=== PATIENT | female | born 1985 | race Caucasian/White ===

== ENCOUNTER 2017-01-23 12:20 | Emergency (ER) | payer OTHER ==
--- NOTE | ~2017-01-23 | MR31 ---
[facility] A Service of [facility] & [facility] RADIOLOGY TEXT RESULTS PATIENT: SAULO MOCK LOCATION: [place] : 87 UNIT #: [id number] AGE: [address]: ETHEL ROSAS SEX: F ORDER DR: [id number] [facility] [address] [place], [place] [address] [id number] E MR#: [id number] Acc #: [id number] NAME: SAULO MOCK : 1985 SEX: F STUDY DATE/TIME: 01/23/2017 14:13 UNIT: [facility] ROOM: STUDY DESCRIPTION: MR Cervical WWo Contrast Attending Physician: Ethel Rosas A.P.R.N. Ordering Physician: Ethel Rosas A.P.R.N. Primary Care Physician: [facility], [facility]. MRI CENTER REPORT This report is preliminary unless electronic signature is present. EXAM MR cervical spine HISTORY Bilateral hand tingling and numbness for four days. IV drug abuse. Last used yesterday. Concern for epidural abscess. History of MRSA. COMMENT MRI of the cervical spine performed prior to and following intravenous administration of 11 mL of MultiHance. There are some plain films for comparison from 2005. Sagittal alignment is normal. Bone marrow signal intensity is normal. Subtle intervertebral disc desiccation 2-3 through 5-6 levels. There is no Chiari-I malformation. The cervical cord is normal in size and signal intensity. Following contrast administration, there is no pathologic intracanalicular enhancement. There is no evidence for diskitis, osteomyelitis, or epidural abscess formation. The study is motion limited despite use of motion limiting sequences and repeating sequences. Evaluation of degenerative disease: No significant abnormality. C3-4, left sided facet degenerative change mild with mild left foraminal narrowing. No canal stenosis. Minor concentric disc bulge. At C4-5, mild facet degenerative change on the left. Minor concentric disc bulge with uncovertebral osteophyte formation right greater than left. Mild effacement of the right greater than left cord anteriorly. Very mild canal stenosis and bilateral foraminal narrowing probably moderate to severe on the right mild to moderate on the left. Probably a small more focal right paramedian to posterolateral component of protrusion at the C4-5 level. [facility] A Service of [facility] & [facility] RADIOLOGY TEXT RESULTS PATIENT: SAULO MOCK LOCATION: [place] : 87 UNIT #: [id number] AGE: [address]: ETHEL ROSAS SEX: F ORDER DR: At C5-6, minor concentric disc bulge, mild effacement of the anterior cord and thecal sac. Very mild canal stenosis. Mild foraminal narrowing bilaterally. C6-7, no significant abnormality. C7-T1, no significant abnormality. IMPRESSION 1. Nothing to suggest diskitis osteomyelitis or epidural abscess. 2. There are some cervical degenerative changes most significant appearing radiographically at the C4-5 level where there is mild canal stenosis and asymmetric right sided foraminal impingement. There is concern for a small rightward more focal protrusion impinging upon the entry zone of the right 4-5 foramen and foramen itself. See above. Dictated by... Jillian Red M.D. THIS IS AN ELECTRONICALLY VERIFIED REPORT Jillian Red M.D. at 01/24/2017 1:43 PM ESAU/vince TD: 01/24/2017 04:24 JOB #: [id number] MRI CENTER REPORT Page 1 of 1 COPY
[~2017-01-23 12:20] MED LIST: BACTRIM DS TABL1 TA1 PO; BENADRYL25 MG PO; BIRTH CONTROL PILL; DERMACORT1 GM EXT; E-MYCIN250 MG PO; FLEXERIL10 MG PO; HYDROCODON-ACE1 EACH PO; IBUPROFEN800 MG PO; KEFLEX500 MG PO; MOBIC15 MG PO; ORUDIS75 M1 PO; PHENERGAN25 MG PO; ULTRAM PO
[2017-01-23 14:06] LABS: BASOPHIL# 0.1 X10e3 (0-0.3); BASOPHIL% 0.9 % (0-2.5); EOSINOPHIL# 0.2 X10e3 (0-0.7); EOSINOPHIL% 3.1 % (0.0-7.0); HEMATOCRIT 40.6 % (35.0-45.0); HEMOGLOBIN 13.1 gm/dL (12.0-16.0); LYMPHOCYTE# 1.7 X10e3 (1.0-3.5); MEAN CELL VOLUME 86.6 FL (83-96); MEAN CORPUSCULAR HEMOGLOBIN 27.9 PG (28-34); MEAN CORPUSCULAR HGB CONC 32.3 g/dL (30-36); MEAN PLATELET VOLUME 8.1 FL (6.5-11.5); MONOCYTE# 0.8 X10e3 (0-1.0); NEUTROPHIL# 3.1 X10e3 (1.5-7.1); PLATELET COUNT 374 X10e3 (140-420); RED BLOOD COUNT 4.69 X10e (3.90-5.30); RED CELL DISTRIBUTION WIDTH 14.7 % (11.0-15.5); WHITE BLOOD COUNT 5.8 X10e3 (4.0-10.5)
[2017-01-23 14:09] LABS: DIFF IND NO
[2017-01-23 14:27] LABS: BUN/CREATININE RATIO 16.66; CALCIUM SERUM 8.8 mg/dL (8.4-10.2); CREATININE SERUM 0.6 mg/dL (0.6-1.4); GLOM FILT RATE Estimated 122.3 mL/min (>60); POTASSIUM 3.6 mmol/L (3.5-5.1)
== END 2017-01-23 17:48 | disposition home or self-care (01) ==
LOC: CED 12:20 → CFTX 12:20
PROVIDERS: Nurse Practitioner
DX: G56.03 Carpal tunnel syndrome, bilateral upper limbs (principal); M50.321 Other cervical disc degeneration at C4-C5 level; F17.210 Nicotine dependence, cigarettes, uncomplicated; Z98.51 Tubal ligation status; Z79.899 Other long term (current) drug therapy; Z88.1 Allergy status to other antibiotic agents
CPT/HCPCS: 29125; 72156; 80048; 85025; 96361; 96374; 99284; A9577; J1885

== ENCOUNTER 2017-04-30 04:36 | Emergency (ER) | payer OTHER ==
[~2017-04-30] VITALS: Ht 154.9 cm; Wt 63.5 kg
[2017-04-30 06:58] LABS: BASOPHIL# 0.1 X10e3 (0-0.3); BASOPHIL% 0.9 % (0-2.5); DIFF IND NO; EOSINOPHIL# 0.2 X10e3 (0-0.7); EOSINOPHIL% 1.8 % (0.0-7.0); HEMOGLOBIN 13.8 gm/dL (12.0-16.0); LYMPHOCYTE% 38.2 % (17.0-45.0); MEAN CELL VOLUME 87.5 FL (83-96); MEAN CORPUSCULAR HEMOGLOBIN 30.3 PG (28-34); MEAN CORPUSCULAR HGB CONC 34.6 g/dL (30-36); MEAN PLATELET VOLUME 7.3 FL (6.5-11.5); MONOCYTE# 1.3 X10e3 (0-1.0); MONOCYTE% 12.2 % (3.0-12.0); NEUTROPHIL# 4.9 X10e3 (1.5-7.1); NEUTROPHIL% 46.9 % (40-75); PLATELET COUNT 469 X10e3 (140-420); RED BLOOD COUNT 4.57 X10e (3.90-5.30); RED CELL DISTRIBUTION WIDTH 13.4 % (11.0-15.5); WHITE BLOOD COUNT 10.3 X10e3 (4.0-10.5)
[2017-04-30 07:37] LABS: ALBUMIN SERUM 4.4 g/dL (3.5-5.0); ALCOHOL BLOOD <5 mg/dL (0); ALKALINE PHOSPHATASE 78 U/L (32-92); ALT (SGPT) 154 U/L (10-40); AST (SGOT) 103 U/L (10-42); BILIRUBIN, DIRECT 0.2 mg/dL (0.0-0.2); BILIRUBIN,INDIRECT 0.7 mg/dL (0.0-0.9); BILIRUBIN,TOTAL 0.9 mg/dL (0.2-2.0); BLOOD UREA NITROGEN 19 mg/dL (9-23); BUN/CREATININE RATIO 14.61; CARBON DIOXIDE 27 mmol/L (22-31); CHLORIDE 99 mmol/L (100-111); CREATININE SERUM 1.3 mg/dL (0.6-1.4); GLUCOSE FASTING 109 mg/dL (70-110); POTASSIUM 3.2 mmol/L (3.5-5.1); PROTEIN TOTAL SERUM 8.5 g/dL (6.0-8.3); SODIUM 136 mmol/L (135-145)
== END 2017-04-30 10:02 | disposition home or self-care (01) ==
LOC: CED 04:36
PROVIDERS: Emergency Medicine
DX: F41.9 Anxiety disorder, unspecified (principal); F19.10 Other psychoactive substance abuse, uncomplicated; J45.909 Unspecified asthma, uncomplicated; Z88.1 Allergy status to other antibiotic agents; F17.200 Nicotine dependence, unspecified, uncomplicated
CPT/HCPCS: 36415; 80048; 80076; 85025; 96360; 99283; G0480

== ENCOUNTER 2017-05-28 15:53 | Emergency (ER) | payer OTHER ==
[~2017-05-28] VITALS: Ht 154.9 cm; Wt 59.0 kg
[2017-05-28] MEDS ORDERED: PROAIR HFA8.5 GM (16:15)
== END 2017-05-28 18:04 | disposition home or self-care (01) ==
LOC: SED 15:53
DX: T40.1X1A Poisoning by heroin, accidental (unintentional), initial encounter (principal); J45.909 Unspecified asthma, uncomplicated; F17.200 Nicotine dependence, unspecified, uncomplicated; Z88.0 Allergy status to penicillin
CPT/HCPCS: 99284